=== PATIENT | female | born 1945 | race Caucasian/White ===

== ENCOUNTER 2021-10-16 13:06 | Emergency (ER) | payer OTHER ==
[~2021-10-16] VITALS: Ht 167.6 cm; Wt 59.0 kg
[2021-10-16] MEDS ORDERED: SYNTHROID88 MCG (13:14)
[2021-10-16] MEDS ORDERED: PROTONIX20 MG (13:15)
[2021-10-16] MEDS ORDERED: AVAPRO75 MG (13:15)
== END 2021-10-16 19:37 | disposition home or self-care (01) ==
LOC: ER 13:06
DX: R07.89 Other chest pain (principal); Z88.2 Allergy status to sulfonamides; I10 Essential (primary) hypertension

== ENCOUNTER 2021-12-02 13:49 | Emergency (ER) | payer OTHER ==
[~2021-12-02] VITALS: Ht 167.6 cm; Wt 55.8 kg
[~2021-12-02 13:49] MED LIST: AVAPRO75 MG; PROTONIX20 MG; SYNTHROID88 MCG
== END 2021-12-02 22:23 | disposition home or self-care (01) ==
LOC: ER 13:49
DX: N23 Unspecified renal colic (principal); M41.9 Scoliosis, unspecified; M77.8 Other enthesopathies, not elsewhere classified; Z88.2 Allergy status to sulfonamides; I10 Essential (primary) hypertension; Z87.442 Personal history of urinary calculi; Z20.822 Contact with and (suspected) exposure to COVID-19